=== PATIENT | male | born 1990 | race Caucasian/White ===

== ENCOUNTER 2018-08-10 08:45 | Emergency (ER) | payer OTHER ==
[2018-08-10] MEDS ORDERED: KETOROLAC 60 MG/2 ML VIAL IM STA (09:17)
[2018-08-10] MEDS ORDERED: fentaNYL 100 MCG/2 ML VIAL IM STA (09:18)
[2018-08-10] MEDS ORDERED: CHERRY SYRUP 10 ML UDC PO ONE (09:19)
[2018-08-10] MEDS ORDERED: DEXAMETHASONE 10 MG/ML VIAL PO STA (09:19)
--- NOTE | 2018-08-10 09:56 | ED Physician Documentation ---
PD HPI BACK PAIN - Stated complaint Stated Complaint: BACK PX - Chief complaint Chief Complaint: Back Pain - History obtained from History obtained from: Patient - History of Present Illness Timing - onset: How many months ago (Past two months or more. Worse after playing softball last night.) Timing - details: Still present Location: Mid, Lower, Left Quality: Pain Associated symptoms: No: Fever, Weakness, Numbness, Incontinent of urine Worsened by: Movement Similar symptoms before: No diagnosis - Additional information Additional information: The patient is a 28-year-old male who presents with lower back pain radiating to his left leg. He has had more mild pain intermittently for the past 2-1/2 months, but became worse last night after playing softball. He denies any specific trauma. He denies fever or urinary incontinence. He reports occasional tingling down his left leg, but denies weakness or numbness. Past medical history is significant for hematoma drainage from his lower back in 2012. Review of Systems Constitutional: denies: Fever Nose: denies: Congestion Throat: denies: Sore throat Cardiac: denies: Chest pain / pressure Respiratory: denies: Dyspnea, Cough GI: denies: Abdominal Pain, Nausea, Vomiting : denies: Dysuria, Incontinent Skin: denies: Rash Musculoskeletal: reports: Back pain. denies: Extremity pain Neurologic: denies: Focal weakness, Numbness, Headache PD PAST MEDICAL HISTORY - Past Medical History Past Medical History: Yes Musculoskeletal: Chronic back pain - Past Surgical History Ortho: Spine surgery - Present Medications Home Medications: Ambulatory Orders Medication Instructions Recorded Confirmed Dextroamphetamine/Amphetamine 10 mg PO 08/10/18 [Adderall 10 mg Tablet] Hydrocodone/Acetaminophen 1 - 2 each PO Q6H PRN #14 tablet 08/10/18 [Hydrocodon-Acetaminophen 5-325] Ibuprofen [Ibu] 800 mg PO 08/10/18 Methocarbamol [Robaxin] 08/10/18 predniSONE [Prednisone] 40 mg PO DAILY #10 tablet 08/10/18 - Allergies Allergies/Adverse Reactions: Allergies Allergy/AdvReac Type Severity Reaction Status Date / Time No Known Drug Allergies Allergy Verified 08/10/18 09:06 - Social History Does the pt smoke?: No Smoking Status: Never smoker Does the pt drink ETOH?: Yes ETOH Use: Beer PD ED PE NORMAL - Vitals Vital signs reviewed: Yes (Borderline hypertension initially.) - General General: Alert and oriented X 3, Well developed/nourished, Other (Lying supine and resisting movement.) - HEENT HEENT: Atraumatic, Pharynx benign - Neck Neck: Supple, no meningeal sign, No bony TTP - Cardiac Cardiac: RRR - Respiratory Respiratory: No respiratory distress, Clear bilaterally - Abdomen Abdomen: Soft, Non tender - Back Back: No CVA TTP, No spinal TTP, Other (Tenderness to palpation in the left paralumbar musculature.) - Derm Derm: No rash - Extremities Extremities: No edema, No calf tenderness / cord, Other (Straight leg raise test is positive on the left at 25 degrees elevation, negative on the right.) - Neuro Neuro: Alert and oriented X 3, No motor deficit, No sensory deficit Results - Vitals Vitals: Vital Signs - 24 hr 08/10/18 08/10/18 09:03 11:23 Temperature 36.6 C 36.9 C Heart Rate 72 68 Respiratory 16 24 Rate Blood Pressure 142/82 H 124/78 O2 Saturation 98 98 Oxygen O2 Source Room air PD MEDICAL DECISION MAKING - ED course Complexity details: reviewed results, re-evaluated patient, considered differential, d/w patient ED course: The patient's presentation is most consistent with acute exacerbation of low back pain, with left-sided sciatica. His presentation does not suggest spinal stenosis, cauda equina syndrome, or epidural abscess. Treatment in the emergency department included in the fentanyl 50 mcg IM, Toradol 60 mg IM, and dexamethasone 10 mg orally. His pain improved with that treatment. He is being discharged with prescriptions for Vicodin, and prednison e. I discussed with him symptomatic treatment, outpatient follow-up, as well as potentially worrisome signs or symptoms that should prompt reevaluation in the emergency department. Departure - Departure Disposition: 01 Home, Self Care Clinical Impression: Sciatica, left side Condition: Stable Instructions: ED Sciatica Prescriptions: Hydrocodone/Acetaminophen [Hydrocodon-Acetaminophen 5-325] 1 - 2 each PO Q6H PRN #14 tablet PRN Reason: pain predniSONE [Prednisone] 40 mg PO DAILY #10 tablet Comments: Apply ice pack to your lower back intermittently for the next 3 or 4 days. Continue using Robaxin if needed for muscle spasms. You can use Vicodin as prescribed if needed for pain. Take prednisone daily as prescribed. Follow-up with your primary physician within 2 weeks. Call to schedule an appo intment. Return to the emergency department if you develop increasing pain, fever, difficulty urinating, or otherwise worsening symptoms. Forms: Activity restrictions
[2018-08-10 11:24] VITALS: BP 124/78
== END 2018-08-10 12:02 | disposition home or self-care (01) ==
LOC: ED 08:45
DX: M54.42 Lumbago with sciatica, left side (principal)
CPT/HCPCS: 96372; 99283